=== PATIENT | male | born 1990 | race Hispanic/Latino ===

== ENCOUNTER 2022-08-29 10:06 | Emergency (ER) | payer BC ==
[~2022-08-29] VITALS: Ht 190.5 cm; Wt 108.9 kg
[2022-08-29 11:16] LABS: BASOPHILS % 0.5 % (0.0-1.0); EOSINOPHILS # (AUTO) 0.2 (0.0-0.4); EOSINOPHILS % 2.6 % (0.0-6.0); HEMATOCRIT 45.5 % (38.2-49.6); HEMOGLOBIN 15.1 g/dL (14.0-18.0); LYMPHOCYTES # (AUTO) 1.6 (1.0-3.2); LYMPHOCYTES % 19.3 % (18.0-39.1); MEAN CORPUSCULAR HEMOGLOBIN 31.1 pg (28-32); MEAN CORPUSCULAR HGB CONC 33.2 g/dL (31-35); MEAN CORPUSCULAR VOLUME 93.8 fL (81-99); MONOCYTES # (AUTO) 0.7 (0.2-0.8); MONOCYTES % 8.6 % (4.4-11.3); NEUTROPHILS # (AUTO) 5.8 (2.1-6.9); NEUTROPHILS % 68.6 % (38.7-80.0); PLATELET COUNT 161 x10e3/uL (140-360); RED BLOOD COUNT 4.85 x10e6/uL (4.3-5.7)
[2022-08-29] MEDS ORDERED: KETOROLAC TROMETHAMINE 30 MG/ML VIAL IV STA (11:39)
[2022-08-29] MEDS ORDERED: HYDROCODONE/APAP 5MG-325MG TAB PO ONE (11:45)
[2022-08-29 12:07] LABS: ERYTHROCYTE SEDIMENTATION RATE 28 mm/hr (0-13)
[2022-08-29 12:26] LABS: ANION GAP 12.6 mmol/L (8-16); CALCIUM 9.4 mg/dL (8.4-10.2); CREATININE, SERUM 0.94 mg/dL (0.72-1.25); POTASSIUM 3.6 mmol/L (3.5-5.1)
[2022-08-29] MEDS ORDERED: METHYLPREDNISOLONE SOD SUCC 125 MG/2ML VIAL IV STA (12:29)
[2022-08-29] MEDS ORDERED: IBUPROFEN600 MG PO (12:53)
[2022-08-29] MEDS ORDERED: BACTRIM DS TAB1 EACH PO (12:53)
[2022-08-29 13:48] VITALS: BP 144/77; PULSE 69; RESP 18; TEMP 98.4; O2SAT 98
== END 2022-08-29 13:50 | disposition home or self-care (01) ==
LOC: ER 10:14
DX: M02.331 Reiter's disease, right wrist (principal)
CPT/HCPCS: 36415; 73110; 80048; 85025; 85651; 99284; J1885; J2930